=== PATIENT | male | born 1965 | race Caucasian/White ===

== ENCOUNTER 2020-06-11 13:28 | Emergency (ER) | payer MEDICAID ==
[~2020-06-11] VITALS: Ht 165.1 cm; Wt 64.0 kg
[2020-06-11 15:22] LABS: BASOPHILS % 2.1 % (0.0-2.0); EOSINOPHILS % 2.6 % (0.0-5.0); HEMATOCRIT. 39.1 % (42.0-52.0); HEMOGLOBIN. 13.2 g/dL (14.0-18.0); MEAN CORPUSCULAR HEMOGLOBIN 34.6 pg (28.0-32.0); MEAN CORPUSCULAR VOLUME 102.6 fL (80.0-94.0); MEAN PLATELET VOLUME 7.2 fl (7.4-10.4); MONOCYTES % 8.5 % (2.0-8.0); NEUTROPHILS % 56.8 % (40.0-76.0); PLATELET 141 x1000/uL (130-400); RED BLOOD CELL COUNT 3.81 mill/uL (4.7-6.1); RED CELL DISTRIBUTION WIDTH 14.7 % (11.6-14.6)
[2020-06-11 15:24] LABS: CLARITY URINE CLEAR (CLEAR); COLOR URINE YELLOW (YELLOW); KETONES URINE NEGATIVE (NEGATIVE); LEUKOCYTE ESTERASE URINE NEGATIVE (NEGATIVE); NITRITE URINE NEGATIVE (NEGATIVE); OCCULT BLOOD URINE NEGATIVE (NEGATIVE); PROTEIN URINE NEGATIVE (NEGATIVE); SPECIFIC GRAVITY URINE 1.008 (1.005-1.030); UROBILINOGEN URINE 0.2 E.U./dL (0.2-1.0)
[2020-06-11 15:30] LABS: CHLORIDE 106 mEq/L (98-107)
[2020-06-11 15:49] LABS: ETHANOL BLOOD 441 mg/dL
[2020-06-11 16:07] LABS: *AMPHETAMINES SCREEN URINE NEGATIVE (NEGATIVE); *BARBITURATES SCREEN URINE NEGATIVE (NEGATIVE); *BENZODIAZEPINES SCREEN URINE NEGATIVE (NEGATIVE); *COCAINE SCREEN URINE NEGATIVE (NEGATIVE); METHADONE URINE SCREEN NEGATIVE (NEGATIVE); OPIATES URINE SCREEN NEGATIVE (NEGATIVE)
[2020-06-11 16:08] LABS: CANNABINOID URINE SCREEN NEGATIVE (NEGATIVE); PHENCYCLIDINE URINE SCREEN NEGATIVE (NEGATIVE)
[2020-06-11] MEDS ORDERED: SODIUM CHLORIDE 0.9% 1,000 ML IV ONE (16:22)
[2020-06-11 18:59] VITALS: BP 122/73
== END 2020-06-11 19:01 | disposition home or self-care (01) ==
LOC: ER 13:45
DX: F10.229 Alcohol dependence with intoxication, unspecified (principal); Y90.8 Blood alcohol level of 240 mg/100 ml or more
CPT/HCPCS: 36415; 80053; 80305; 80320; 81003; 85025; 93005; 96360; 99285; J7030; G0480

== ENCOUNTER 2020-06-16 19:09 | Emergency (ER) | payer MEDICAID ==
[~2020-06-16] VITALS: Ht 172.7 cm; Wt 87.0 kg
[2020-06-16 19:16] VITALS: BP 136/84
== END 2020-06-16 22:15 | disposition left against medical advice (07) ==
LOC: ER 19:09
DX: F10.229 Alcohol dependence with intoxication, unspecified (principal); Y90.9 Presence of alcohol in blood, level not specified
CPT/HCPCS: 99281

== ENCOUNTER 2021-01-19 14:16 | Emergency (ER) | payer MEDICAID ==
[~2021-01-19] VITALS: Ht 170.2 cm; Wt 79.0 kg
[2021-01-19 17:26] LABS: EOSINOPHILS % 2.8 % (0.0-5.0); HEMATOCRIT. 38.6 % (42.0-52.0); HEMOGLOBIN. 13.2 g/dL (14.0-18.0); LYMPHOCYTES % 36.1 % (20.0-50.0); MEAN CORPUSCULAR VOLUME 102.6 fL (80.0-94.0); MEAN PLATELET VOLUME 6.8 fl (7.4-10.4); NEUTROPHILS % 45.1 % (40.0-76.0); PLATELET 143 x1000/uL (130-400); RED BLOOD CELL COUNT 3.76 mill/uL (4.7-6.1); RED CELL DISTRIBUTION WIDTH 14.6 % (11.6-14.6)
[2021-01-19 17:31] LABS: CHLORIDE 109 mEq/L (98-107)
[2021-01-19 17:42] LABS: ETHANOL BLOOD 301 mg/dL
[2021-01-19 19:17] LABS: CLARITY URINE CLEAR (CLEAR); COLOR URINE YELLOW (YELLOW); KETONES URINE NEGATIVE (NEGATIVE); LEUKOCYTE ESTERASE URINE NEGATIVE (NEGATIVE); NITRITE URINE NEGATIVE (NEGATIVE); OCCULT BLOOD URINE TRACE (NEGATIVE); PROTEIN URINE NEGATIVE (NEGATIVE); SPECIFIC GRAVITY URINE 1.005 (1.005-1.030); UROBILINOGEN URINE 0.2 E.U./dL (0.2-1.0)
[2021-01-19 19:28] LABS: *AMPHETAMINES SCREEN URINE NEGATIVE (NEGATIVE); *BARBITURATES SCREEN URINE NEGATIVE (NEGATIVE); *COCAINE SCREEN URINE NEGATIVE (NEGATIVE); OPIATES URINE SCREEN NEGATIVE (NEGATIVE)
[2021-01-19 19:29] LABS: *BENZODIAZEPINES SCREEN URINE NEGATIVE (NEGATIVE); CANNABINOID URINE SCREEN NEGATIVE (NEGATIVE); METHADONE URINE SCREEN NEGATIVE (NEGATIVE); PHENCYCLIDINE URINE SCREEN NEGATIVE (NEGATIVE)
[2021-01-19 20:19] VITALS: BP 132/89
== END 2021-01-19 20:20 | disposition home or self-care (01) ==
LOC: ER 14:31
DX: F10.229 Alcohol dependence with intoxication, unspecified (principal); M21.332 Wrist drop, left wrist; Y90.8 Blood alcohol level of 240 mg/100 ml or more
CPT/HCPCS: 36415; 80053; 80305; 80320; 81003; 85025; 99285; G0480

== ENCOUNTER 2021-01-25 15:27 | Emergency (ER) | payer MEDICAID ==
[~2021-01-25] VITALS: Ht 177.8 cm; Wt 82.0 kg
[2021-01-25 15:41] VITALS: BP 116/70
== END 2021-01-25 16:17 | disposition left against medical advice (07) ==
LOC: ER 15:27
DX: Z53.21 Procedure and treatment not carried out due to patient leaving prior to being seen by health care provider (principal)

== ENCOUNTER 2021-07-18 21:37 | Emergency (ER) | payer MEDICAID ==
[~2021-07-18] VITALS: Ht 165.1 cm; Wt 77.0 kg
[2021-07-19 05:08] VITALS: BP 133/67
== END 2021-07-19 05:10 | disposition home or self-care (01) ==
LOC: ER 21:37
DX: F10.129 Alcohol abuse with intoxication, unspecified (principal); Y90.9 Presence of alcohol in blood, level not specified
CPT/HCPCS: 99283